=== PATIENT | female | born 1985 | race Asian ===

== ENCOUNTER 2022-03-25 18:13 | Emergency (ER) | payer OTHER ==
[2022-03-25 18:27] VITALS: BP 126/72; PULSE 98; TEMP 98; BMI 34.9
[2022-03-25 21:19] LABS: BASO % 0.8 % (0-2.0); EOS % 2.5 % (0-4.5); HEMATOCRIT 32.3 % (32.4-45.2); HEMOGLOBIN 10.6 GM/dL (10.7-15.3); LYMPH % 20.1 % (8-40); MCH 23.8 pg (25.7-33.7); MCHC 32.8 g/dl (32.0-36.0); MEAN CELL VOLUME 72.6 fl (80-96); MEAN PLT VOLUME 8.4 fl (7.5-11.1); MONO % 12.1 % (3.8-10.2); NEUT % 64.5 % (42.8-82.8); PLATELET COUNT 289 10^3/uL (134-434); RBC 4.45 M/mm3 (3.60-5.2); RDW 16.3 % (11.6-15.6); WHITE BLOOD COUNT 4.7 K/mm3 (4.0-10.0)
[2022-03-25 21:26] LABS: INR 1.06 (0.83-1.09); PROTHROMBIN TIME (PATIENT) 12.2 SEC (9.7-13.0)
[2022-03-25 21:29] LABS: ACTIVATED PTT 35.7 SECONDS (25.2-36.5)
[2022-03-25 21:58] LABS: CALCIUM 8.8 mg/dL (8.5-10.1)
[2022-03-25 21:59] LABS: ALBUMIN 3.6 g/dl (3.4-5.0); BLOOD UREA NITROGEN 12.5 mg/dL (7-18)
[2022-03-25 22:02] LABS: CREATININE 0.7 mg/dL (0.55-1.3)
[2022-03-25 22:03] LABS: BILIRUBIN,TOTAL 0.2 mg/dL (0.2-1)
[2022-03-25 22:04] LABS: TOT PROT 7.5 g/dl (6.4-8.2)
== END 2022-03-26 00:29 | disposition home or self-care (01) ==
LOC: JER 18:13
DX: R07.9 Chest pain, unspecified (principal)
CPT/HCPCS: 0241U-QW; 36415; 71046-TC-FY; 71275-TC; 80053; 84484; 84703; 85025; 85379; 85610; 85730; 87070; 93005; 93010; 99285-25; Q9967